=== PATIENT | male | born 1985 | race Two or more races ===

== ENCOUNTER 2017-04-24 19:39 | Emergency (ER) | payer MEDICAID ==
[~2017-04-24] VITALS: Ht 180.3 cm; Wt 95.3 kg
[2017-04-24 21:33] LABS: Basophils # (auto) 0 uL; Basophils % (auto) 0.4 % (0.0-2.0); CONDITION Y; Eosinophils # (auto) 0.1 uL; Hematocrit 47.7 % (41.0-53.0); Hemoglobin 16.2 g/dL (13.5-17.5); Lymphocytes # (auto) 3.1 uL; Mean Corpuscular Hemoglobin 30.2 pg (28.0-32.0); Mean Corpuscular Hgb Conc. 33.8 g/dL (32.0-36.0); Mean Corpuscular Volume 89.4 fL (80.0-100.0); Mean Platelet Volume 11.5 fL (7.4-10.4); Monocytes # (auto) 0.6 uL; Monocytes % (auto) 6.5 % (0.0-12.0); Neutrophils # (auto) 4.8 uL; Neutrophils % (auto) 56.1 % (37.0-80.0); Platelet Count (auto) 211 10^3/uL (140-450); Red Cell Distribution Width 13.1 % (11.6-16.0); SUSPECT SEE PRINTOUT; White Blood Cell 8.5 10^3/uL (4.4-10.8)
[2017-04-24 22:06] LABS: Salicylate < 1.7 mg/dL (2.8-20.0)
[2017-04-24 22:07] LABS: Albumin 4.8 g/dL (3.4-5.0); Alkaline Phosphatase 95 U/L (45-117); Anion Gap 7 (5-15); Aspartate Aminotransferase 42 U/L (15-37); BUN/Creatinine Ratio 11.3; Bilirubin, Total 0.8 mg/dL (0.2-1.0); Blood Urea Nitrogen 13 mg/dL (7-18); Calcium 9.4 mg/dL (8.5-10.1); Carbon Dioxide 29 mmol/L (21-32); Chloride 101 mmol/L (98-107); GFR African American 97 mL/min; GFR Non-African American 80 mL/min; Glucose 103 mg/dL (74-106); Sodium 137 mmol/L (136-145); Total Protein 8.9 g/dL (6.4-8.2)
[2017-04-24 22:16] LABS: Acetaminophen < 2.0 ug/mL (10-30)
[2017-04-25 15:17] VITALS: BP 130/68
== END 2017-04-25 15:23 | disposition home or self-care (01) ==
LOC: ER 19:42
DX: F32.9 Major depressive disorder, single episode, unspecified (principal); R45.851 Suicidal ideations
CPT/HCPCS: 36415; 80053; 80307; 80320; 80329; 85025

== ENCOUNTER 2018-06-25 21:04 | Emergency (ER) | payer MEDICAID ==
[~2018-06-25] VITALS: Ht 180.3 cm; Wt 97.5 kg
[2018-06-25 21:55] LABS: Urine WBC None Seen /hpf (0 - 3)
[2018-06-25 22:08] LABS: Basophils # (auto) 0 uL; Basophils % (auto) 0.5 % (0.0-2.0); Eosinophils # (auto) 0.2 uL; Eosinophils % (auto) 2.4 % (0.0-7.0); Hematocrit 46.2 % (41.0-53.0); Hemoglobin 16.2 g/dL (13.5-17.5); Lymphocytes # (auto) 2.3 uL; Lymphocytes % (auto) 32.7 % (10.0-50.0); Mean Corpuscular Volume 88.6 fL (80.0-100.0); Monocytes # (auto) 0.8 uL; Neutrophils # (auto) 3.7 uL; Neutrophils % (auto) 53.4 % (37.0-80.0); Nucleated Red Blood Cells % 0.2 %; Platelet Count (auto) 176 10^3/uL (140-450); Red Blood Cells 5.22 10^6/uL (4.5-5.90); Red Cell Distribution Width 12.9 % (11.8-14.3); White Blood Cell 6.9 10^3/uL (4.4-10.8)
[2018-06-25 22:15] LABS: Urine Bacteria NONE SEEN /hpf (None Seen); Urine Blood Negative /uL (Negative); Urine Specific Gravity 1.001 (1.001-1.035)
[2018-06-25 22:24] LABS: Albumin 3.7 g/dL (3.4-5.0); BUN/Creatinine Ratio 8.9; Calcium 8.1 mg/dL (8.5-10.1)
[2018-06-25 22:26] LABS: Alcohol, Urine < 3.0 mg/dL (0-5); Amphetamine Screen, Urine NEGATIVE (NEGATIVE); Barbiturate Scree,Urine NEGATIVE (NEGATIVE); Benzodiazephine Screen, Urine NEGATIVE (NEGATIVE); Cannabinoid Screen, Urine NEGATIVE (NEGATIVE); Cocaine Screen, Urine NEGATIVE (NEGATIVE); Opiate Scree,Urine NEGATIVE (NEGATIVE); Phencyclidine Screen, Urine NEGATIVE (NEGATIVE)
[2018-06-25 22:27] LABS: Bilirubin, Total 0.4 mg/dL (0.2-1.0); Total Protein 7.7 g/dL (6.4-8.2)
[2018-06-26 08:05] VITALS: BP 149/82
== END 2018-06-26 09:49 | disposition home or self-care (01) ==
LOC: ER 21:04
DX: I88.9 Nonspecific lymphadenitis, unspecified (principal); R19.7 Diarrhea, unspecified; Z87.891 Personal history of nicotine dependence
CPT/HCPCS: 36415; 74176; 80053; 80307; 81001; 82150; 83690; 83735; 85025; 99285; J7030